=== PATIENT | female | born 1960 | race Caucasian/White ===

== ENCOUNTER 2018-07-30 08:41 | Outpatient (CLI) | payer BC | END 2018-07-30 08:42 | disposition home or self-care (01) | LOC: BICMAMMO 08:41 | PROVIDERS: ATTEND Internal Medicine | DX: N63.11 Unspecified lump in the right breast, upper outer quadrant (principal); E04.9 Nontoxic goiter, unspecified | CPT/HCPCS: 77066; G0279 ==

== ENCOUNTER 2018-08-02 10:07 | Outpatient (CLI) | payer BC ==
--- NOTE | 2018-08-02 12:21 | ULT ---
THYROID ULTRASOUND: DATE: 08/02/2018. COMPARISON: 03/12/2015. HISTORY: Thyroid goiter. TECHNIQUE: Multiplanar, schroeder scale sonographic imaging of the thyroid gland obtained. FINDINGS: The thyroid isthmus measures 3 mm in AP dimension, the right lobe measures 5.0 x 2.1 x 2.0 cm and the left lobe measures 5.0 x 2.1 x 2.2 cm. Within the mid portion of the right lobe of the thyroid gland there is a heterogeneously hypoechoic n odule measuring approximately 1.6 x 0.8 x 0.9 cm, slightly enlarged when compared to the prior examin ation at which time it measured approximately 1.0 x 0.7 x 0.9 cm. Within the inferior aspect of the right lobe there is a round solid hyperechoic nodule measuring approximately 1.3 x 1.3 x 1.1 cm, slig htly enlarged when compared to the prior examination at which time it measured approximately 0.8 x 1. 0 x 1.1 cm. There is a 5 x 3 x 6 mm mildly complex cystic nodule superior aspect of left lobe. There is a mildly heterogeneous hypoechoic nodule in the inferior aspect of the left lobe measuring 8 x 6 x 7 mm. Nod ules within the left lobe are slightly enlarged as well. IMPRESSION: The 2 dominant nodules within the right thyroid lobe have slightly enlarged over the subsequent 4 yea rs. Both of these lesions are TIRADS category 3 lesions. Given the size of the larger lesion, a fol lowup thyroid ultrasound is best advised in 1 year. This study was evaluated in consultation with Dr Osiel Gaitan who is in agreement. POS: [facility]
== END 2018-08-02 10:08 | disposition home or self-care (01) ==
LOC: BICULT 10:07
PROVIDERS: ATTEND Internal Medicine
DX: E04.9 Nontoxic goiter, unspecified (principal); E04.2 Nontoxic multinodular goiter; E07.9 Disorder of thyroid, unspecified
CPT/HCPCS: 76536

== ENCOUNTER 2019-08-19 13:16 | Outpatient (CLI) | payer BC ==
--- NOTE | 2019-08-19 14:14 | ULT ---
EXAM: US Thyroid STANDARD PROVIDED CLINICAL HISTORY: Follow-up thyroid goiter and thyroid nodules. COMPARISON: 08/02/2018 FINDINGS: There is a heterogeneous nodule again seen in the upper pole right lobe of thyroid gland measuring 1. 7 cm x 1.3 cm x 0.7 cm, and this nodule previously measured 1.6 cm x 0.9 cm x 0.7 cm. There is a small closely adjacent heterogeneous nodule measuring 0.8 cm in maximal dimension which was not seen on prior study There is a heterogeneous nodule seen in the inferior pole right lobe of the thyroid gland which measu res 1.3 cm x 1.2 cm x 2 cm. Similar measurements were obtained of this nodule on the prior exam. There is a stable predominantly anechoic cystic lesion seen in the superior pole left lobe of thyroid gland measuring 0.7 cm not significantly changed in size compared to the prior exam. However, the left lobe of thyroid gland demonstrates generalized heterogeneity. Small anechoic cystic lesion withi n the superior pole may actually be within a slightly larger isoechoic nodule measuring 1.6 cm x 1.4 cm x 1.4 cm. There is a heterogeneous nodule again seen in the inferior pole left lobe of the thyroid gland measur ing 1 cm x 0.9 cm x 0.7 cm prior measurement of 0.8 cm x 0.6 cm x 0.7 cm. IMPRESSION: TI RADS level 3 nodules in each lobe of the thyroid gland. Follow-up thyroid ultrasound is recommende d in one year.
--- NOTE | 2019-08-19 14:44 | MMO ---
Bilateral MAMMO Bilat Screen [facility]. CLINICAL HISTORY: Patient is 59 years old and is seen for screening. The patient has no family history of breast cancer. The patient has no personal history of cancer. VIEWS: The views performed were: bilateral craniocaudal with tomosynthesis and bilateral mediolateral oblique with tomosynthesis. FILMS COMPARED: The present examination has been compared to prior imaging studies performed at [facility] on 06/09/2011, 06/21/2012, 08/22/2013 and 07/30/2018. This study has been interpreted with the assistance of computer-aided detection. MAMMOGRAM FINDINGS: The breasts are heterogeneously dense, which could obscure a lesion on mammography. There are no suspicious masses, suspicious calcifications, or new areas of architectural distortion. IMPRESSION: THERE IS NO MAMMOGRAPHIC EVIDENCE OF MALIGNANCY. A ROUTINE FOLLOW-UP MAMMOGRAM IN 1 YEAR IS RECOMMENDED. THE RESULTS OF THIS EXAM WERE SENT TO THE PATIENT. ACR BI-RADS Category 1 - Negative MAMMOGRAPHY NOTE: 1. A negative mammogram report should not delay a biopsy if a dominant of clinically suspicious mass is present. 2. Approximately 10% to 15% of breast cancers are not detected by mammography. 3. Adenosis and dense breasts may obscure an underlying neoplasm. Reported by: CAITY WATTS MD Electonically Signed: [id number]
== END 2019-08-19 13:17 | disposition home or self-care (01) ==
LOC: BICULT 13:16
PROVIDERS: ATTEND Internal Medicine
DX: Z12.31 Encounter for screening mammogram for malignant neoplasm of breast (principal); E04.2 Nontoxic multinodular goiter
CPT/HCPCS: 76536; 77063; 77067

== ENCOUNTER 2024-07-08 09:41 | Outpatient (CLI) | payer MEDICARE | END 2024-07-08 09:42 | disposition home or self-care (01) | LOC: BICMAMMO 09:41 | PROVIDERS: ATTEND Family Medicine | DX: Z12.31 Encounter for screening mammogram for malignant neoplasm of breast (principal); M81.0 Age-related osteoporosis without current pathological fracture; Z78.0 Asymptomatic menopausal state | CPT/HCPCS: 77063; 77067; 77080 ==